=== PATIENT | female | born 1965 | race Hispanic/Latino ===

== ENCOUNTER 2018-09-26 19:29 | Emergency (ER) | payer MEDICAID ==
[2018-09-26 19:29] VITALS: BMI 33.7
[2018-09-26 19:41] VITALS: BP 130/69; PULSE 82; RESP 16; TEMP 98.4; O2SAT 100
--- NOTE | 2018-09-26 20:01 | ED PDOC ---
Lower Extremity Pain/Injury Time Seen by Provider: 09/26/18 19:57 Chief Complaint (Nursing): Lower Extremity Problem/Injury Chief Complaint (Provider): Knee pain History Per: Patient History/Exam Limitations: no limitations Onset/Duration Of Symptoms: Days Current Symptoms Are (Timing): Still Present Additional Complaint(s): 53 year old homeless female, with a history of chronic knee pain, states she has knee pain. Patient reports she has a prescription for Soma by pain management but has been unable to follow up. Patient is requesting Morphine for pain control and plans to follow up with an orthopedist. PMD: none Past Medical History Reviewed: Historical Data, Nursing Documentation, Vital Signs Vital Signs: Last Vital Signs Temp 98.4 F 09/26/18 19:39 Pulse 82 09/26/18 19:39 Resp 16 09/26/18 19:39 BP 130/69 09/26/18 19:39 Pulse Ox 100 09/26/18 19:39 - Medical History PMH: Bipolar Disorder, Depression - Surgical History Surgical History: No Surg Hx - Family History Family History: States: Unknown Family Hx - Home Medications Home Medications: Ambulatory Orders Medication Instructions Recorded Meloxicam [Mobic] 7.5 mg PO BID PRN #14 tab 09/26/18 - Allergies Allergies/Adverse Reactions: Allergies Allergy/AdvReac Type Severity Reaction Status Date / Time aripiprazole [From Abilify] Allergy ITCHING Verified 09/26/18 19:38 cephalexin monohydrate Allergy ITCHING Verified 11/14/16 01:49 [From Keflex] fluoxetine [From Prozac] Allergy ITCHING Verified 09/26/18 19:38 Penicillins Allergy ITCHING Verified 11/14/16 01:49 quetiapine fumarate Allergy ITCHING Verified 11/14/16 01:49 [From Seroquel] trazodone Allergy ITCHING Verified 11/14/16 01:49 ziprasidone [From Geodon] Allergy ANAPHYLAXIS Verified 09/26/18 19:38 Review of Systems ROS Statement: Except As Marked, All Systems Reviewed And Found Negative Musculoskeletal: Positive for: Other (Knee pain) Physical Exam - Reviewed Nursing Documentation Reviewed: Yes Vital Signs Reviewed: Yes - Physical Exam Appears: Positive for: Non-toxic, No Acute Distress Head Exam: Positive for: ATRAUMATIC, NORMOCEPHALIC Skin: Positive for: Normal Color, Warm, Dry Eye Exam: Positive for: Normal appearance Neck: Positive for: Normal, Painless ROM Cardiovascular/Chest: Positive for: Regular Rate, Rhythm Respiratory: Positive for: Normal Breath Sounds. Negative for: Wheezing, Respiratory Distress Extremity: Positive for: Other (No obvious deformity of the knee). Negative for: Tenderness (of the knee) Neurologic/Psych: Positive for: Alert, Oriented. Negative for: Motor/Sensory Deficits - ECG O2 Sat by Pulse Oximetry: 100 (RA) Pulse Ox Interpretation: Normal Medical Decision Making Medical Decision Making: Initial Plan: --Toradol 30mg IM Requests Toradol if unable to get Morphine. Patient is requesting to stay in the hospital since she has lost her spot in the homeless [facility]. Scribe Attestation: Documented by Russ Weber acting as a scribe for Rex HOLBROOK. Provider Scribe Attestation: All medical record entries made by the Scribe were at my direction and personally dictated by me. I have reviewed the chart and agree that the record accurately reflects my personal performance of the history, physical exam, medic al decision making, and the department course for this patient. I have also personally directed, reviewed, and agree with the discharge instructions and disposition. Disposition - Clinical Impression Clinical Impression: Arthritis - Patient ED Disposition Is Patient to be Admitted: No - Disposition Referrals: [facility] [Outside] Disposition: Routine/Home Disposition Time: 19:58 Condition: FAIR Prescriptions: Meloxicam [Mobic] 7.5 mg PO BID PRN #14 tab PRN Reason: Pain, Moderate (4-7) Instructions: Osteoarthritis (DC)
== END 2018-09-26 20:27 | disposition home or self-care (01) ==
LOC: H.ER 19:29
DX: M17.9 Osteoarthritis of knee, unspecified (principal); Z88.0 Allergy status to penicillin
CPT/HCPCS: 96372; 99283; J1885

== ENCOUNTER 2018-10-01 10:19 | Emergency (ER) | payer MEDICAID ==
[2018-10-01 10:25] VITALS: BMI 34.0
--- NOTE | 2018-10-01 11:04 | ED PDOC ---
Lower Extremity Pain/Injury Additional History Per: Patient Additional Complaint(s): 53 y/o homeless female with PMH of chronic b/l knee arthritis comes to the ER second time in a week c/o b/l knee pain and asking for morphin/Toradol for her pain. Patient reports 8/10 pain, denies any weakness, falls, trauma, urinary i ssues or diarrhea. PMH: As per HPI PSH: Denies Allg: Multiple medications FH: Non-significant SH: Denies alcohol, smoking or drug use ROS: Denies any chest pain, SOB, abdominal pain or urinary symptoms. <Balbina Fuentes - Last Filed: 10/01/18 11:54> <Ezekiel Valero III - Last Filed: 10/01/18 12:08> Time Seen by Provider: 10/01/18 10:26 Chief Complaint (Nursing): Lower Extremity Problem/Injury Supervising Attending Note - Attestation: I have personally seen and examined this patient.: Yes I have fully participated in the care of the patient.: Yes I have reviewed all pertinent clinical information, including history, physical exam and plan: Yes - Notes: Notes:: pt seen and examined w resident agree w findings. patient requesting Soma and narcotics, stated will not Rx for chronic pain. Then requested cab voucher to a friends house, patient is freely ambulatory, transportation not indicated. <Ezekiel Valero III - Last Filed: 10/01/18 12:08> Past Medical History Vital Signs: Last Vital Signs Temp 97.5 F L 10/01/18 10:22 Pulse 91 H 10/01/18 10:22 Resp 16 10/01/18 10:22 BP 121/68 10/01/18 10:22 Pulse Ox 98 10/01/18 10:26 - Medical History PMH: Bipolar Disorder, Depression - Family History Family History: States: Unknown Family Hx <Balbina Fuentes - Last Filed: 10/01/18 11:54> Vital Signs: Last Vital Signs Temp 98 F 10/01/18 12:00 Pulse 90 10/01/18 12:00 Resp 18 10/01/18 12:00 BP 131/71 10/01/18 12:00 Pulse Ox 97 10/01/18 12:00 <Ezekiel Valero III - Last Filed: 10/01/18 12:08> - Home Medications Home Medications: Ambulatory Orders Medication Instructions Recorded Meloxicam [Mobic] 7.5 mg PO BID PRN #14 tab 09/26/18 - Allergies Allergies/Adverse Reactions: Allergies Allergy/AdvReac Type Severity Reaction Status Date / Time aripiprazole [From Abilify] Allergy ITCHING Verified 09/26/18 19:38 cephalexin monohydrate Allergy ITCHING Verified 11/14/16 01:49 [From Keflex] fluoxetine [From Prozac] Allergy ITCHING Verified 09/26/18 19:38 Penicillins Allergy ITCHING Verified 11/14/16 01:49 quetiapine fumarate Allergy ITCHING Verified 11/14/16 01:49 [From Seroquel] trazodone Allergy ITCHING Verified 11/14/16 01:49 ziprasidone [From Geodon] Allergy ANAPHYLAXIS Verified 09/26/18 19:38 Review of Systems Constitutional: Negative for: Fever Eyes: Negative for: Pain ENT: Negative for: Ear Pain Cardiovascular: Negative for: Chest Pain, Palpitations Respiratory: Negative for: Cough, Shortness of Breath Gastrointestinal: Negative for: Nausea, Vomiting, Abdominal Pain Genitourinary Female: Negative for: Dysuria Musculoskeletal: Negative for: Neck Pain Skin: Negative for: Rash Neurological: Negative for: Weakness Psych: Negative for: Anxiety <Balbina Fuentes - Last Filed: 10/01/18 11:54> Physical Exam - Physical Exam Appears: Positive for: No Acute Distress Head Exam: Positive for: NORMAL INSPECTION Skin: Positive for: Normal Color Eye Exam: Positive for: Normal appearance ENT: Positive for: Normal ENT Inspection Neck: Positive for: Normal Cardiovascular/Chest: Positive for: Regular Rate, Rhythm. Negative for: Edema, JVD, Murmur Respiratory: Positive for: Normal Breath Sounds. Negative for: Decreased Breath Sounds, Accessory Muscle Use, Crackles Gastrointestinal/Abdominal: Positive for: Normal Exam, Bowel Sounds, Soft. Negative for: Tenderness Back: Positive for: Normal Inspection. Negative for: L CVA Tenderness, R CVA Tenderness Extremity: Positive for: Normal ROM. 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 - Toradol 15mg IM - Reevaluation Case discussed with Dr. Valero Patient reports improved symptoms Agrees with discharge plan Close f/u with PMD in 2-3 days recommended Re-evaluation Time: 11:52 Condition: Improved <Balbina Fuentes - Last Filed: 10/01/18 11:54> Medical Decision Making Medical Decision Making: Arthritis of b/l knees <Balbina Fuentes - Last Filed: 10/01/18 11:54> Disposition - Patient ED Disposition Is Patient to be Admitted: No - Disposition Disposition: Routine/Home Disposition Time: 11:56 <Balbina Fuentes - Last Filed: 10/01/18 11:54> <Ezekiel Valero III - Last Filed: 10/01/18 12:08> - Clinical Impression Clinical Impression: Knee pain, Arthritis - Disposition Referrals: FAMILY PROVIDER,NO [Family Provider] - Condition: STABLE Additional Instructions: Follow up with PMD in 2-3 days C/w Mobic and OTC pain management Instructions: Chronic Knee Pain, Arthritis and Exercise Forms: [employer] (French) Print Language: ALBANIAN
[2018-10-01 12:01] VITALS: BP 131/71; PULSE 90; RESP 18; TEMP 98; O2SAT 97
== END 2018-10-01 12:25 | disposition home or self-care (01) ==
LOC: H.ER 10:19
DX: M19.072 Primary osteoarthritis, left ankle and foot (principal); M19.071 Primary osteoarthritis, right ankle and foot; Z59.0 Homelessness
CPT/HCPCS: 96372; 99283; J1885